=== PATIENT | male | born 1995 | race African-American/Black ===

== ENCOUNTER 2018-09-06 18:34 | Inpatient (IN) ==
[2018-09-06] MEDS ORDERED: HYDROmorphone 2 MG/1 ML VIAL IV STA (18:51)
[2018-09-06] MEDS ORDERED: ONDANSETRON 4 MG/2 ML VIAL IV STA (18:51)
[2018-09-06] MEDS ORDERED: ceFAZolin 2,000 MG in SODIUM CHLORIDE 0.9% 100 ML IV STA (18:52)
[2018-09-06] MEDS ORDERED: DIPH/TET/ACEL PERT BOOSTER VACCINE 0.5 ML VIAL IM ONE (18:52)
[2018-09-06] MEDS ORDERED: GENTAMICIN IV STA (19:25)
[2018-09-06 19:28] LABS: Basophils # 0.1 10*3/uL (0.0-0.2); Basophils % 0.5 % (0.0-0.8); Eosinophils # 0.2 10*3/uL (0.0-0.87); Eosinophils % 1.2 % (0.00-10.9); Hematocrit 42.6 VOL% (42.0-52.0); Hemoglobin 13.9 GM/DL (14.0-18.0); Immature Granulocytes % 0.4 %; Immature Granulocytes Absolute 0.05 #; Lymphocytes # 2.4 10*3/uL (1.4-4.0); Mean Corpuscular HGB Conc 32.6 GM/DL (32-36); Mean Corpuscular Hemoglobin 31 PG (27-34); Mean Corpuscular Volume 93.6 FL (87-102); Mean Platelet Volume 9.3 FL (9.6-12.0); Monocytes % 7.4 % (1.7-12.7); Neutrophils # 9.1 10*3/uL (1.4-7.4); Neutrophils % 71.5 % (38.7-73.9); Platelet Count 225 T/CUMM (130-400); Red Blood Count 4.55 MC/CUMM (3.8-5.5); Red Cell Distribution Width 11.9 % (9.3-17.3); White Blood Count 12.8 T/CUMM (4-12)
[2018-09-06] MEDS ORDERED: GENTAMICIN INJ 80 MG in SODIUM CHLORIDE 0.9% 100 ML IV STA (19:31)
[2018-09-06 19:56] LABS: Albumin 4.4 G/DL (3.4-5.0); Bilirubin,Total 0.4 MG/DL (0.2-1.0); Calcium 8.8 MG/DL (8.5-10.1); Osmolality,Calculated 277.5 MOS/KG (273-304); Potassium 3.3 MMOL/L (3.5-5.1); Total Protein 7.9 G/DL (6.4-8.3)
[2018-09-06] MEDS ORDERED: GENTAMICIN INJ 50 ML IV STA (19:56)
[2018-09-06] MEDS ORDERED: ACETAMINOPHEN 325 MG SUPP RECTAL ONE (19:57)
[2018-09-06] MEDS ORDERED: MAGNESIUM HYDROXIDE SUSP 30 ML UDCUP PO PRN (20:26)
[2018-09-06] MEDS ORDERED: LACTATED RINGERS 1,000 ML IV SCH (20:30)
[2018-09-06] MEDS ORDERED: BACITRACIN OINT 0.9 GM PACK TOP ONE ×2 (21:07→21:31)
[2018-09-06] MEDS ORDERED: PROPOFOL 200 MG/20 ML VIAL IV ONE (23:08)
[2018-09-06] MEDS ORDERED: SEVOFLURANE 1 UNIT/15 MINUTE INH ONE (23:08)
[2018-09-06] MEDS ORDERED: ACETAMINOPHEN 1,000 MG/100 ML VIAL IV ONE (23:09)
[2018-09-06] MEDS ORDERED: SUCCINYLCHOLINE 200 MG/10 ML VIAL ONE (23:09)
[2018-09-06] MEDS ORDERED: MIDAZOLAM 2 MG/2 ML VIAL ONE (23:09)
[2018-09-06] MEDS ORDERED: PHENYLEPHRINE 1 MG/10 ML SYRINGE IV ONE (23:09)
[2018-09-06] MEDS ORDERED: ONDANSETRON 4 MG/2 ML VIAL ONE (23:09)
[2018-09-06] MEDS ORDERED: ROCURONIUM 100 MG/10 ML VIAL IV ONE (23:09)
[2018-09-07] MEDS: MORPHINE 4 MG/1 ML VIAL IV PRN ×3 (01:32→13:33)
[2018-09-07] MEDS: DOCUSATE SODIUM 100 MG CAPSULE PO SCH ×3 (01:36→21:01)
[2018-09-07] MEDS ORDERED: ceFAZolin 2,000 MG in PREMIX 1 EACH IV SCH (02:30)
[2018-09-07] MEDS: ONDANSETRON 4 MG/2 ML VIAL IV PRN (03:32)
[2018-09-07] MEDS ORDERED: GENTAMICIN INJ 80 MG in PREMIX 1 EACH IV SCH (04:00)
[2018-09-07 05:51] LABS: Basophils % 0.4 % (0.0-0.8); Eosinophils % 0.4 % (0.00-10.9); Hematocrit 38.3 VOL% (42.0-52.0); Hemoglobin 12.6 GM/DL (14.0-18.0); Immature Granulocytes % 0.4 %; Immature Granulocytes Absolute 0.04 #; Lymphocytes # 1.7 10*3/uL (1.4-4.0); Lymphocytes % 15.3 % (21.2-54.2); Mean Corpuscular HGB Conc 32.9 GM/DL (32-36); Mean Corpuscular Hemoglobin 31 PG (27-34); Mean Platelet Volume 9.3 FL (9.6-12.0); Monocytes # 1.2 10*3/uL (0.11-0.8); Monocytes % 11.2 % (1.7-12.7); Neutrophils # 7.8 10*3/uL (1.4-7.4); Neutrophils % 72.3 % (38.7-73.9); Platelet Count 197 T/CUMM (130-400); Red Blood Count 4.12 MC/CUMM (3.8-5.5); Red Cell Distribution Width 11.9 % (9.3-17.3); White Blood Count 10.8 T/CUMM (4-12)
[2018-09-07 06:22] LABS: Calcium 8.5 MG/DL (8.5-10.1); Osmolality,Calculated 278.5 MOS/KG (273-304); Potassium 3.6 MMOL/L (3.5-5.1)
[2018-09-07] MEDS: KETOROLAC 30 MG/1 ML VIAL IV PRN ×2 (06:22→19:29)
[2018-09-07] MEDS: GENTAMICIN INJ 400 MG in SODIUM CHLORIDE 0.9% 100 ML IV SCH (13:39)
[2018-09-08] MEDS: MORPHINE 4 MG/1 ML VIAL IV PRN ×2 (00:31→23:49)
[2018-09-08] MEDS: KETOROLAC 30 MG/1 ML VIAL IV PRN (07:58)
[2018-09-08] MEDS: DOCUSATE SODIUM 100 MG CAPSULE PO SCH ×2 (08:42→21:25)
[2018-09-08] MEDS: GENTAMICIN INJ 400 MG in SODIUM CHLORIDE 0.9% 100 ML IV SCH (14:46)
[2018-09-08] MEDS: ONDANSETRON 4 MG/2 ML VIAL IV PRN (17:54)
[2018-09-09] MEDS: DOCUSATE SODIUM 100 MG CAPSULE PO SCH (09:27)
[2018-09-09] MEDS: GENTAMICIN INJ 400 MG in SODIUM CHLORIDE 0.9% 100 ML IV SCH (13:42)
[2018-09-09 15:42] VITALS: BP 119/69
== END 2018-09-09 16:30 | disposition home or self-care (01) | DRG 501 ==
LOC: EDSEX → N.ED 18:34 → N.3E 20:18 → N.EDINP 20:26 → N.3E 21:17
PROVIDERS: ADMIT Orthopaedic Surgery; ATTEND Orthopaedic Surgery